=== PATIENT | male | born 1965 | race Caucasian/White ===

== ENCOUNTER 2018-01-11 05:36 | Day surgery (SDC) | payer BC, OTHER ==
[2018-01-11] MEDS ORDERED: Acetaminophen 500 MG Tab PO ONE (05:45)
[2018-01-11] MEDS ORDERED: Meropenem 500 MG SDV ONE (06:31)
[2018-01-11] MEDS: Dextrose 5%-Lactated Ringers 1,000 ML IV SCH ×3 (06:43→20:12)
[2018-01-11] MEDS ORDERED: Midazolam 1 MG/ML 2 ML SDV ONE (06:57)
[2018-01-11] MEDS ORDERED: fentaNYL 250 MCG/5 ML SDV ONE ×2 (06:57→07:43)
[2018-01-11] MEDS ORDERED: Rocuronium 50 MG/5 ML Vial ONE (06:58)
[2018-01-11] MEDS ORDERED: Dexamethasone 4 MG/ML SDV ONE (06:58)
[2018-01-11] MEDS ORDERED: Neostigmine Methylsulfate 1 MG/ML 5 ML Syringe ONE (06:58)
[2018-01-11] MEDS ORDERED: Propofol 200 MG/20 ML SDV ONE (06:58)
[2018-01-11] MEDS ORDERED: Ondansetron 4 MG/2 ML SDV ONE (06:58)
[2018-01-11] MEDS ORDERED: Glycopyrrolate 0.2 MG/ML 5 ML MDV ONE (06:58)
[2018-01-11] MEDS ORDERED: ceFAZolin 2 GM in Sodium Chloride 0.9% 50 ML IV ONE (07:00)
[2018-01-11] MEDS ORDERED: Ketamine 500 MG/5 ML MDV IV SCH (07:30)
[2018-01-11] MEDS ORDERED: Ropivacaine 53 ML, Dexamethasone 8 MG, EPINEPHrine 0.4 MG, Sodium Chloride 0.9% 24.6 ML NERVRT SCH ×4 (07:30)
[2018-01-11] MEDS ORDERED: Labetalol 20 MG/4 ML Syringe ONE (07:43)
[2018-01-11] MEDS ORDERED: Linezolid 200 MG/100 ML Bag IRR ONE (07:45)
[2018-01-11] MEDS: Bupivacaine 0.5%/EPINEPHrine 1:200,000 50 ML MDV ONE ×2 (08:09→08:30)
[2018-01-11] MEDS ORDERED: fentaNYL 100 MCG/2 ML SDV IVPUSH ONE (09:07)
[2018-01-11] MEDS ORDERED: Ketorolac 60 MG/2 ML SDV IM ONE (09:07)
[2018-01-11] MEDS ORDERED: Ondansetron 4 MG/2 ML SDV IVPUSH PRN (10:43)
[2018-01-11] MEDS: HYDROmorphone 2 MG Tab PO PRN ×3 (12:45→22:13)
[2018-01-11] MEDS ORDERED: Pantoprazole 40 MG Vial IV SCH (14:00)
[2018-01-11] MEDS: Lisinopril 10 MG Tab PO SCH (14:05)
[2018-01-11] MEDS: Acetaminophen 500 MG Tab PO SCH ×2 (14:06→20:08)
[2018-01-11] MEDS: ceFAZolin 2 GM in Sodium Chloride 0.9% 50 ML IV SCH ×2 (14:06→22:09)
[2018-01-11] MEDS: Ketorolac 10 MG Tab PO SCH ×2 (14:41→20:08)
[2018-01-11] MEDS ORDERED: atorvaSTATin 20 MG Tab PO SCH (21:00)
[2018-01-12] MEDS: Ketorolac 10 MG Tab PO SCH ×2 (02:40→08:11)
[2018-01-12] MEDS: Acetaminophen 500 MG Tab PO SCH ×2 (02:40→07:34)
[2018-01-12] MEDS: ceFAZolin 2 GM in Sodium Chloride 0.9% 50 ML IV SCH (05:39)
[2018-01-12] MEDS: HYDROmorphone 2 MG Tab PO PRN (05:43)
[2018-01-12 07:22] VITALS: BP 137/88
[2018-01-12] MEDS ORDERED: Magnesium Hydroxide 400 MG/5 ML Susp 30 ML Cup PO PRN (07:32)
[2018-01-12] MEDS: Lisinopril 10 MG Tab PO SCH (08:12)
--- NOTE | 2018-01-12 13:18 | DISCH ---
FINAL DIAGNOSES: 1. Incarcerated umbilical hernia with extensive intraperitoneal adhesions. 2. Direct left inguinal hernia with left ilioinguinal and iliohypogastric nerves at high risk for scar entrapment. SECONDARY DIAGNOSES: 1. History of hypertension. 2. History of hyperlipidemia. OPERATIVE PROCEDURES: Done on 01/11/2018: 1. Diagnostic laparoscopy with;. a. Repair of incarcerated umbilical hernia with mesh. b. Placement of Vicryl mesh to displace viscera from abdominal and pelvic eckert to limit recurrent adhesion formation. 2. Left inguinal exploration with;. a. Repair of left inguinal hernia with mesh. b. Division of left ilioinguinal and iliohypogastric nerves. HOSPITAL COURSE: This is a 52-year-old presenting with two hernias, as outlined above. On the date of admission, he underwent the above procedures. Postoperatively, he has done well with no major problems. Presently, pain continues to be fairly well controlled on a combination of Tylenol, Toradol and Dilaudid. He will be sent home with Dilaudid 2 to 4 mg p.o. q.4 hours p.r.n. pain, #40; Toradol 10 mg p.o. q.i.d. x5 days scheduled; and then Tylenol 1 gram p.o. q.i.d. x5 days then p.r.n. He will also be sent home with 2 doses of milk of magnesia to take as needed for bowels. The appropriate level of activity and management of the wound was reviewed with the patient. He will follow up with Dr. Lerner in [facility] on 01/19/2018.
--- NOTE | 2018-01-19 11:54 | OR ---
DATE OF PROCEDURE: 01/11/2018 PREOPERATIVE DIAGNOSES: 1. Incarcerated umbilical hernia. 2. Left inguinal hernia. POSTOPERATIVE DIAGNOSES: 1. Incarcerated umbilical hernia. 2. Extensive intraabdominal adhesions. 3. Direct left inguinal hernia. 4. Left ilioinguinal and iliohypogastric nerves at risk for scar entrapment. OPERATIVE PROCEDURES: 1. Diagnostic laparoscopy with;. a. Repair of incarcerated umbilical hernia with mesh (28851). b. Placement of Vicryl mesh to displace the pelvic and abdominal eckert from underlying viscera to limit recurrent adhesion formation. 2. Left inguinal exploration with;. a. Repair of left inguinal hernia with mesh (08225). b. Division of left ilioinguinal nerve ([id number]). c. Division of left iliohypogastric nerve ([id number]). ANESTHESIA: General. INDICATIONS FOR PROCEDURE: The patient presents with two hernias, one was an umbilical hernia, which is not entirely reducible, and second was a left inguinal hernia. Plan was to proceed with both of these with mesh technique. The laparoscopic approach was used for the umbilical hernia and an open approach for the left inguinal hernia. Potential risks of the procedure including bleeding, infection, injury to underlying viscera, problems with mesh becoming infected, problems with chronic pain following the procedure, recurrence of the hernias over time were all reviewed, and the patient wishes to proceed. DETAILS OF PROCEDURE: The patient was taken to the operating room and placed in a supine position. After general endotracheal anesthesia was induced, a Norwood catheter was inserted, which was removed at the end of the procedure, and the abdomen and groin areas were prepped and draped. Beginning in the right lateral abdomen, a transverse incision was made and peritoneal cavity entered under direct vision with an Optiview trocar and inflated to 15 mmHg pressure with CO2. Laparoscope was reinserted. No underlying trocar insertion site injuries were seen. Following this, bilateral transversus abdominis plane blocks focusing on the mid and lower abdomen were placed using direct vision of the needle at the correct location, and injection of the standard solution bilaterally. Following this, 5 mm trocars were placed in the right upper quadrant as well as the right lower quadrant, and the area of the hernia identified. The hernia contained some incarcerated omentum within it along with several adhesions to the lower mid-abdomen. These were taken down with Harmonic Scalpel, and the hernia then reduced. A 20.[address] mesh with the balloon positioning system was then selected. This was soaked in antibiotic-containing saline solution and placed into the peritoneal cavity. A small stab wound just inferior to the umbilicus was made, and the mesh then pulled up against the abdominal wall with a suture passer, pulling up the balloon catheter through that opening. The balloon was then deflated, bringing the mesh up against the abdominal wall. Mesh was then affixed circumferentially with 2 rings of absorbable tacking screws. The balloon catheter was deflated and withdrawn. Mesh appeared to have good fixation and wide margin away from the otherwise 3 cm fascial defect. The patient was felt to be at high risk for significant adhesion formation between the mesh as well as pelvic and abdominal eckert and underlying viscera, which could complicate subsequent abdominal surgeries. Given this, a 12-inch segment of Vicryl mesh was placed behind the urinary bladder in the midline, along the pelvic sidewalls, and then up against the abdominal wall including the area of the mesh. Once this was completed, the trocars were removed. The fascia at the 12-mm site was closed with 0 Vicryl stitch and the skin with 4-0 Vicryl skin stitch. Attention was taken to the left inguinal area, a standard left inguinal incision was made and carried down through the skin and subcutaneous tissue and through the external oblique aponeurosis. Subaponeurotic flaps were raised superiorly and inferiorly. The patient had both the ilioinguinal nerve and iliohypogastric nerves passing into the field of the hernia. Repair at this point which will be subsequently covered with the flat portion of the mesh will be at high risk for scar entrapment and chronic pain. Given this, both of these areas were divided and excised at the far-lateral aspect of the incision and sent separately as surgical specimens. The cord structures were then mobilized upward. The patient was noted to have a direct inguinal hernia. There was no significant indirect hernia component. The transversalis fascia over the hernia was then incised allowing dissection behind the conjoined tendon and down to the level of the pubic bone. An extra large mesh plug was then placed into the defect and affixed to Robinson's ligament with titanium tacking screws and then to the underside of the conjoined tendon medially, superiorly, and laterally with horizontal mattress sutures of 0 Vicryl stitch. This appeared to adequately repair the hernia. The conjoined tendon was then affixed to the shelving portion of the inguinal ligament with a running 0 Vicryl stitch. The field of the operation was then injected with some 0.5% Marcaine. Flat portion of the mesh plug system was then placed and sutured lateral to the cord structures with 3-0 Vicryl stitch and pubic tubercle medially with titanium tacking screw over this, and the external oblique aponeurosis was then closed in covering the mesh and cord structures, this with a 3-0 Vicryl stitch, as well as used for the subcutaneous tissue. Skin was then closed with some 4-0 Vicryl subcuticular stitch. Dressing was applied. The patient was taken to the recovery room in a satisfactory condition. There were no evident complications. Kingsley Lerner MD /[id number]
== END 2018-01-12 08:45 | disposition home or self-care (01) ==
LOC: JP.SDS 05:36 → JP.MS 08:50 → JP.SDS 01-12 08:45
PROVIDERS: ATTEND Surgery
DX: K42.0 Umbilical hernia with obstruction, without gangrene (principal); K40.90 Unilateral inguinal hernia, without obstruction or gangrene, not specified as recurrent; I10 Essential (primary) hypertension; E78.5 Hyperlipidemia, unspecified; G47.33 Obstructive sleep apnea (adult) (pediatric); Z79.899 Other long term (current) drug therapy; Z88.0 Allergy status to penicillin; Z88.5 Allergy status to narcotic agent
CPT/HCPCS: 49505; 49653; 64772; 88302; A9270; C1781; C9113; J0171; J0690; J1100; J1885; J2020; J2250; J2405; J2704; J2710; J2795; J3010; J3490; J7042; J7050; J2185

== ENCOUNTER 2025-04-20 06:48 | Day surgery (SDC) | payer MEDICAID ==
[2025-04-20] MEDS ORDERED: Propofol 200 MG/20 ML SDV ONE ×2 (06:57→08:12)
[2025-04-20] MEDS ORDERED: fentaNYL 50 MCG/ML SDV ONE (06:57)
[2025-04-20] MEDS ORDERED: Midazolam 1 MG/ML 2 ML SDV ONE (06:57)
[2025-04-20] MEDS: Lactated Ringers 1,000 ML IV SCH (07:41)
[2025-04-20 09:15] VITALS: BP 140/92; PULSE 58
== END 2025-04-20 09:27 | disposition home or self-care (01) ==
LOC: JP.SDS 06:48
PROVIDERS: ATTEND Family Medicine
DX: Z12.11 Encounter for screening for malignant neoplasm of colon (principal); E78.00 Pure hypercholesterolemia, unspecified; I10 Essential (primary) hypertension; E66.9 Obesity, unspecified; Z88.0 Allergy status to penicillin; Z88.5 Allergy status to narcotic agent; Z68.30 Body mass index [BMI] 30.0-30.9, adult; Z79.82 Long term (current) use of aspirin; Z79.84 Long term (current) use of oral hypoglycemic drugs; Z79.899 Other long term (current) drug therapy
CPT/HCPCS: 00811-QZ; 45378; J2250; J2704; J3010; J7120